=== PATIENT | female | born 1990 | race Caucasian/White ===

== ENCOUNTER 2016-10-24 13:19 | Emergency (ER) | payer MEDICAID ==
[~2016-10-24 13:19] MED LIST: CALNTAB; PENI500T PO; PERI0.126 SWISH-SPIT
--- NOTE | 2016-10-24 15:00 | PD ---
HPI Chief Complaint Decreased movement Date Seen: Oct 24, 2016 Travel History International Travel<30 Days: No Contact w/Intl Traveler<30Days: No Known Affected Area: No History of Present Illness HPI at 36w 6d with c/o decreased movement for one day. Reports FM upon arrival to [facility]. Denies contractions/LOF/VB. Has appt for OB f/u tomorrow. Para: 1 : 2 Last Menstrual Period: Oct 24, 2016 History Past Medical History Medical History: Denies Significant Hx Obstetric History Obstetric History FT x 1 Past Surgical History Narrative Surgical Appendectomy 2006 Family History Family History: Negative Social History Alcohol Use: No Tobacco Use: No Substance Abuse: Yes (History of IVDA in the past- none this ) Allergies-Medications (Allergen,Severity, Reaction): Coded Allergies: No Known Allergies (Verified , 09/07/16) Home Meds Active Scripts Chlorhexidine Gluconate (Mouth) Liq (Peridex Liq)0.12% Soln15 Ml SWISH-SPIT BID 14 Days Ref 0 Prov:Anastasia Ramon 07/31/16 Penicillin V Potassium 500 Mg [id number] Mg PO Q6H 10 Days Ref 0 Prov:Anastasia Ramon 07/31/16 Reported Medications Vitamin (Calna)1 Tab Tab 09/07/16 Physical Exam Narrative GENERAL: Well-nourished, well-developed patient. SKIN: Warm and dry. HEAD: Normocephalic and atraumatic. EYES: No scleral icterus. No injection or drainage. ENT: No nasal drainage noted. Mucous membranes pink. Airway patent. NECK: Supple, trachea midline. No JVD. CARDIOVASCULAR: Regular rate and rhythm without murmurs, gallops, or rubs. RESPIRATORY: Breath sounds equal bilaterally. No accessory muscle use. BREASTS: Bilateral exam showed no masses , no retractions, no nipple discharge. ABDOMEN/GI: Abdomen soft, non-tender, bowel sounds present, no rebound, no guarding Gravid to [-] weeks size Fundal Height: [-] GENITOURINARY: deferred External Genitalia: intact and normal in appearance BUS glands: [-] Cervix: [-] Dilatation: [-] Effacement: [-] Station: [-] Presentation: [-] Membranes: [intact or ruptured] Uterine Contractions: [rare] FHT's: Category: [1] Baseline: [130s] Reactive: [yes] Variability: [moderate] Decels: [none] EXTREMITIES: No cyanosis or edema. BACK: Nontender without obvious deformity. No CVA tenderness. NEUROLOGICAL: Awake and alert. Motor and sensory grossly within normal limits. Five out of 5 muscle strength in all muscle groups. Normal speech. Data Data Vital Signs Reviewed: Yes MDM Interpretation(s) at 36w 6d, decreased FM, reporting FM Plan movement instructions given to patient. Labor precautions given. All questions answered. Keep f/u appt for tomorrow. Diagnosis Diagnosis: Primary Impression: 36 weeks gestation of Additional Impression: Decreased movement affecting management of in third trimester Disposition: 01 DISCHARGE HOME Condition: Good Alaina Blanco MD Oct 24, 2016 15:00
== END 2016-10-24 15:28 | disposition home or self-care (01) ==
LOC: HOBED 13:19
DX: O36.8130 Decreased fetal movements, third trimester, not applicable or unspecified (principal); Z3A.36 36 weeks gestation of pregnancy
CPT/HCPCS: 99284

== ENCOUNTER 2016-11-05 18:47 | Emergency (ER) | payer MEDICAID ==
--- NOTE | 2016-11-05 20:15 | PD ---
HPI Chief Complaint Loss of fluid Date Seen: Nov 05, 2016 Travel History International Travel<30 Days: No Contact w/Intl Traveler<30Days: No History of Present Illness HPI Patient is a 25 year old at 38-4/7 weeks gestation who presents today for possible ROM. She states that she lost a small amount of clear fluid today. She denies any vaginal bleeding or contractions. Positive movement. History Past Medical History Medical History: Denies Significant Hx Obstetric History Obstetric History s/p with minor placental abruption Past Surgical History Narrative Surgical Appendectomy 2006 Family History Family History: Negative Social History Alcohol Use: No Tobacco Use: No Substance Abuse: Yes (history of marijuana, benzos, dilaudid, methamphetamine, last used 2.5 years ago) Allergies-Medications (Allergen,Severity, Reaction): Coded Allergies: No Known Allergies (Verified , 09/07/16) Home Meds Active Scripts Chlorhexidine Gluconate (Mouth) Liq (Peridex Liq)0.12% Soln15 Ml SWISH-SPIT BID 14 Days Ref 0 Prov:Anastasia Ramon 07/31/16 Penicillin V Potassium 500 Mg [id number] Mg PO Q6H 10 Days Ref 0 Prov:Anastasia Ramon 07/31/16 Reported Medications Vitamin (Calna)1 Tab Tab 09/07/16 Review of Systems Except as stated in HPI: all other systems reviewed are Neg General / Constitutional: No: Fever, Chills Eyes: No: Visual changes HENT: No: Headaches Cardiovascular: No: Chest Pain or Discomfort, Palpitations Respiratory: No: Short of Breath Gastrointestinal: No: Nausea, Vomiting Genitourinary: Discharge, No: Pelvic Pain, Vaginal Bleeding Musculoskeletal: No: Edema Psychiatric: No: Substance Abuse Physical Exam Narrative GENERAL: Well-nourished, well-developed patient. SKIN: Warm and dry. HEAD: Normocephalic and atraumatic. EYES: No scleral icterus. No injection or drainage. ENT: No nasal drainage noted. Mucous membranes pink. Airway patent. NECK: Supple, trachea midline. No JVD. CARDIOVASCULAR: Regular rate and rhythm without murmurs, gallops, or rubs. RESPIRATORY: Breath sounds equal bilaterally. No accessory muscle use. ABDOMEN/GI: Abdomen soft, non-tender, bowel sounds present, no rebound, no guarding Gravid to 38 weeks size GENITOURINARY: External Genitalia: intact and normal in appearance BUS glands: normal Cervix: posterior Dilatation: 1cm Effacement: 80% Station: -3 Presentation: vertex Membranes: intact Uterine Contractions: none FHT's: Category: I Baseline: 130 Reactive: + Variability: moderate Decels: none EXTREMITIES: No cyanosis or edema. BACK: Nontender without obvious deformity. No CVA tenderness. NEUROLOGICAL: Awake and alert. Motor and sensory grossly within normal limits. Normal speech. Data Data Vital Signs Reviewed: Yes Orders ^ Discharge Activity (11/05/16 19:59) MDM Medical Record Reviewed: Yes Narrative Course / MDM 25 year old at 38-4/7 weeks gestation. 1. IUP- Category I tracing, reassuring. Continue routine obstetric care. 2. Possible ROM- Amnisure negative, not in labor. 3. Dispo- Discharge home. Return to ED for signs/symptoms of labor. vignesh Storey Diagnosis Diagnosis: Primary Impression: 38 weeks gestation of Additional Impression: False labor Disposition: 01 DISCHARGE HOME Condition: Stable Patient Instructions: General Instructions, Premature Rupture of Membranes (ED) , Having Your Baby: The Labor Process (GEN) Departure Forms: Tests/Procedures Rona Sawyer MD R2 Nov 05, 2016 20:15
== END 2016-11-06 00:11 | disposition home or self-care (01) ==
LOC: HOBED 18:47
DX: Z03.71 Encounter for suspected problem with amniotic cavity and membrane ruled out (principal); O47.1 False labor at or after 37 completed weeks of gestation; Z3A.38 38 weeks gestation of pregnancy
CPT/HCPCS: 84112; 99284

== ENCOUNTER 2016-11-06 00:37 | Emergency (ER) | payer MEDICAID ==
--- NOTE | 2016-11-06 01:15 | PD ---
HPI Chief Complaint Vaginal bleeding after being examined this evening by her OB doctor Dr. Storey Date Seen: Nov 06, 2016 Travel History International Travel<30 Days: No Contact w/Intl Traveler<30Days: No Known Affected Area: No History of Present Illness HPI Patient is 25-year-old white female at 38 weeks who presented earlier this evening with possible leakage of fluid was seen by Dr. Storey, amnio sure was negative patient was checked cervical exam was a centimeter and she was sent home. The patient now returns describing red vaginal bleeding that began after the exam done none prior, heart rate tracing is reactive no regular contractions noted Para: 1 : 2 History Obstetric History Obstetric History One vaginal delivery Social History Alcohol Use: No Tobacco Use: No Substance Abuse: No Allergies-Medications (Allergen,Severity, Reaction): Coded Allergies: No Known Allergies (Verified , 09/07/16) Home Meds Active Scripts Chlorhexidine Gluconate (Mouth) Liq (Peridex Liq)0.12% Soln15 Ml SWISH-SPIT BID 14 Days Ref 0 Prov:Anastasia Ramon 07/31/16 Penicillin V Potassium 500 Mg [id number] Mg PO Q6H 10 Days Ref 0 Prov:Anastasia Ramon 07/31/16 Reported Medications Vitamin (Calna)1 Tab Tab 09/07/16 Review of Systems General / Constitutional: No: Fever, Weight Gain, Chills, Other Eyes: No: Diploplia, Blurred Vision, Visual changes, Pain, Photophobia HENT: No: Headaches, Vertigo, Lightheadedness Cardiovascular: No: Irregular Rhythm, Chest Pain or Discomfort, Palpitations, Tachycardia, Syncope, Varicosities, Edema, Cyanosis Respiratory: No: Cough, Short of Breath, Other Gastrointestinal: No: Nausea, Vomiting, Diarrhea Genitourinary: Vaginal Bleeding, No: Decreased Urinary Output, Oliguria Musculoskeletal: No: Limited ROM, Weakness, Cramping, Edema, Pain Skin: No Rash, No Itching, No Dryness, No Lumps, No Change in Pigmentation, No Change in Nails, No Alopecia, No Lesions Neurologic: No: Weakness, Dizziness, Syncope, Focal Abnormalities, Coordination Problem, Headache, Slurred Speech, Seizures Psychiatric: No: Depression, Suicidal Ideations, Homicidal Ideation Endocrine: No: Heat Intolerance, Cold Intolerance, Polydipsia, Polyuria, Other Physical Exam Narrative GENERAL: Well-nourished, well-developed patient. SKIN: Warm and dry. HEAD: Normocephalic and atraumatic. EYES: No scleral icterus. No injection or drainage. ENT: No nasal drainage noted. Mucous membranes pink. Airway patent. NECK: Supple, trachea midline. No JVD. CARDIOVASCULAR: Regular rate and rhythm without murmurs, gallops, or rubs. RESPIRATORY: Breath sounds equal bilaterally. No accessory muscle use. BREASTS: Bilateral exam showed no masses , no retractions, no nipple discharge. ABDOMEN/GI: Abdomen soft, non-tender, bowel sounds present, no rebound, no guarding Gravid to [38-] weeks size Fundal Height: [38-] GENITOURINARY: External Genitalia: intact and normal in appearance, speculum exam done and could visualize small amount of dark red blood in the fornix there was no sign of active bleeding BUS glands: [-] Cervix: [1-] Dilatation: 1 Effacement: [50-] Station: [-3] Presentation: [-vtx] Membranes: [intact ] Uterine Contractions: [none-] FHT's: Category: [1-] Baseline: [133-] Reactive: [-yes] Variability: [mod-] Decels: [none-] EXTREMITIES: No cyanosis or edema. BACK: Nontender without obvious deformity. No CVA tenderness. NEUROLOGICAL: Awake and alert. Motor and sensory grossly within normal limits. Five out of 5 muscle strength in all muscle groups. Normal speech. MDM Interpretation(s) This patient is a 25 white female at 38 weeks is a patient of Dr. Storey's was here earlier in the day of to rule out ruptured membranes Dr. Storey saw the patient checked her cervix she had negative amnio sure and she was discharged home. She returns now complaining of red bleeding noted only since that exam none prior. Here on OB ED she was checked speculum exam was done no active bleeding seen but she did have a small amount a red blood dark blood in the posterior fornix. Cervix is still 1 cm 50% -3. heart rate tracing is reactive she is not tamia Impressions-- vaginal bleeding after cervical exam which I explained to the patient was of fairly normal finding and a common occurrence Plan Plan to observe the patient over the next 30 minutes to an hour readability bathroom to see how much if any she's having bleeding if that's minimal that she be discharged home to bedrest Diagnosis Diagnosis: Primary Impression: Spotting affecting in third trimester Disposition: 01 DISCHARGE HOME Condition: Stable Kiran Burciaga II, MD Nov 06, 2016 01:15
== END 2016-11-06 02:18 | disposition home or self-care (01) ==
LOC: HOBED 00:37
DX: O47.1 False labor at or after 37 completed weeks of gestation (principal); Z3A.38 38 weeks gestation of pregnancy
CPT/HCPCS: 99284

== ENCOUNTER 2016-11-08 06:08 | Inpatient (IN) | payer MEDICAID ==
[2016-11-08] VITALS (55 sets, daily range): BP systolic 97–160; BP diastolic 47–101; PULSE 53–102; RESP 16–18; TEMP 97.7–98.2
[2016-11-08] MEDS ORDERED: LACTATED RINGER'S 1000 ML INJ 1,000 ML IV PRN (07:22)
--- NOTE | 2016-11-08 07:22 | PD.LABORPN ---
Subjective Subjective 25 yo swf at 39 0/7 with favorable bishops score here for AROM and induction. No leaking, bleeding, N, V Blurred vision or RUQT. GFM. Prodromal contractions and spotting this week. 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 no substance through the . Stable environment. PNC with HOGA and reassuring Objective Objective Pelvic Exam: 2/80/firm/anterior -2 arom minimal fluid] category one Assessment/Plan Assessment and Plan multip desires induction with favorable bishops score proven to 7 pounds pelvis clinically adequate anticipate epidural and pitocin if needed Laura Storey MD Nov 08, 2016 07:22
[2016-11-08] MEDS ORDERED: OXYTOCIN 30 UNITS-500ML PREMIX 500 ML IV ONE (07:30)
[2016-11-08] MEDS ORDERED: LIDOCAINE HCL 1% 50 ML VIAL INFIL PRN (07:30)
[2016-11-08] MEDS ORDERED: LIDOCAINE HCL 1% 50 ML VIAL I-DERMAL PRN (07:30)
[2016-11-08] MEDS ORDERED: SODIUM CHLORID 0.9% 500 ML INJ 500 ML IV PRN (07:30)
[2016-11-08] MEDS ORDERED: CITRIC ACID-SODIUM CITRATE LIQ 30 ML UDC PO SCH (07:30)
[2016-11-08] MEDS ORDERED: MINERAL OIL 10 ML VIAL TOPICAL PRN (07:30)
[2016-11-08] MEDS ORDERED: OXYTOCIN 30 UNITS-500ML PREMIX 500 ML IV SCH (07:30)
[2016-11-08] MEDS ORDERED: SODIUM CHLOR 0.9% 1000 ML INJ 1,000 ML IV PRN (07:42)
[2016-11-08 07:49] LABS: AUTOMATED NEUTROPHIL # 5.9 TH/MM3 (1.8-7.7); BASOPHIL # 0.1 TH/MM3 (0-0.2); BASOPHIL % 0.6 % (0.0-2.0); EOSINOPHIL # 0.1 TH/MM3 (0-0.4); EOSINOPHIL % 1.4 % (0.0-4.0); HEMATOCRIT 28.5 % (35.0-46.0); HEMO FLAGS DIFF FINAL; LYMPH % 24.3 % (9.0-44.0); LYMPHOCYTE # 2.2 TH/MM3 (1.0-4.8); MEAN CELL VOLUME 83.4 FL (80.0-100.0); MEAN CORPUSCULAR HEMOGLOBIN 29.1 PG (27.0-34.0); MONO % 8.3 % (0.0-8.0); NEUT % 65.4 % (16.0-70.0); PLATELET COUNT 206 TH/MM3 (150-450); RED BLOOD COUNT 3.42 MIL/MM3 (4.00-5.30); RED CELL DISTRIBUTION WIDTH 12.9 % (11.6-17.2); WHITE BLOOD COUNT 9.1 TH/MM3 (4.0-11.0)
[2016-11-08 08:12] LABS: BLOOD, URINE NEG (NEG); GLUCOSE,URINE NEG (NEG); KETONE, URINE NEG (NEG); NITRITE,URINE NEG (NEG); PH, URINE 6.5 (5.0-8.5); SQUAMOUS EPITHELIAL CELL URINE 2 /hpf (0-5); URINE COLOR YELLOW (YELLW/STRAW)
[2016-11-08 08:13] LABS: COMMENT (UR) CULT NOT INDICATED; CULTURE IF INDICATED CULT NOT INDICATED
[2016-11-08] MEDS ORDERED: fentaNYL 2MCG-BUPIV 0.125% INJ 100 ML ONE (08:56)
[2016-11-08] MEDS: LACTATED RINGER'S 1000 ML INJ 1,000 ML IV SCH ×2 (09:11→15:00)
[2016-11-08] MEDS ORDERED: ePHEDrine/NS 25 MG/5 ML SYR ONE (09:26)
[2016-11-08] MEDS ORDERED: fentaNYL 2MCG-BUPIV 0.125% 100 ML EPIDURAL SCH (10:30)
[2016-11-08] MEDS ORDERED: NO SYSTEM NARCOTICS XX PRN (10:30)
[2016-11-08] MEDS ORDERED: DO NOT ADMINISTER ANTICOAGULANTS XX PRN (10:30)
[2016-11-08] MEDS ORDERED: ePHEDrine/NS 25 MG/5 ML SYR IV PRN (10:30)
[2016-11-08] MEDS ORDERED: OXYTOCIN 10 UNIT/ML AMP ONE (14:34)
[2016-11-08] MEDS ORDERED: MEASLES, MUMPS, RUBELLA VACCINE 0.5 ML VIAL SQ ONE (16:00)
[2016-11-08] MEDS ORDERED: DIPHTH/TETANUS/ACEL PERTUSSIS (BOOSTER) 0.5 ML VIAL/PFS IM ONE (16:00)
--- NOTE | 2016-11-08 17:50 | PD.OB.DELI ---
Anesthesia: Epidural Episiotomy: None Vaginal Delivery: Normal Presentation: Occiput anterior Nuchal Cord: None Delayed cord clamping (45 sec): Yes Infant: Female One Minute : 9 Five Minute : 9 Weight: 7 Infant Care: Suctioned, Blow-by O2 delivered Placenta: Spontaneous delivery Laura Storey MD Nov 08, 2016 17:50
[2016-11-08] MEDS ORDERED: ZOLPIDEM TARTRATE 5 MG TAB PO PRN (18:00)
[2016-11-08] MEDS ORDERED: BENZOCAINE 20% TOPICAL SPRAY 60 ML CAN TOPICAL PRN (18:00)
[2016-11-08] MEDS ORDERED: DOCUSATE SODIUM 50 MG/SENNA 8.6 MG TAB PO PRN (18:00)
[2016-11-08] MEDS ORDERED: ONDANSETRON ODT 4 MG TAB PO PRN (18:00)
[2016-11-08] MEDS ORDERED: WITCH HAZEL 50%/GLYCERIN 12.5% 40 PAD JAR TOPICAL PRN (18:00)
[2016-11-08] MEDS ORDERED: ACETAMINOPHEN 325 MG TAB PO PRN (18:00)
[2016-11-08] MEDS ORDERED: SODIUM CHLORIDE 0.9% FLUSH 5 ML FLUSH IV PRN (18:00)
[2016-11-08] MEDS ORDERED: ALUMINUM/MAGNESIUM/SIMETH 30 ML CUP PO PRN (18:00)
[2016-11-08] MEDS ORDERED: SODIUM CHLORIDE 0.9% FLUSH 5 ML FLUSH IV SCH (21:00)
[2016-11-08] MEDS: IBUPROFEN 600 MG TAB PO PRN (21:35)
[2016-11-09] MEDS: IBUPROFEN 600 MG TAB PO PRN ×4 (04:35→23:43)
--- NOTE | 2016-11-09 08:27 | HHI.OB ---
Subjective Post Day: 1 Remarks Doing well, pain is well controlled Baby is doing well, Objective Vitals/I&O Vital Signs Date Time Temp Pulse Resp B/P Pulse Ox O2 Delivery O2 Flow Rate FiO2 11/08/16 20:00 98.0 11/08/16 20:00 80 18 11/08/16 19:50 123/74 11/08/16 19:30 18 11/08/16 19:15 91 148/96 11/08/16 19:01 75 123/65 11/08/16 19:00 18 11/08/16 18:45 79 141/79 11/08/16 18:31 82 139/69 11/08/16 18:30 98.2 11/08/16 18:00 102 152/91 11/08/16 17:51 97 145/101 11/08/16 17:45 18 11/08/16 17:31 84 160/91 11/08/16 17:01 88 131/83 11/08/16 16:31 76 138/58 11/08/16 16:15 98.1 11/08/16 16:00 86 126/78 11/08/16 15:32 67 133/67 11/08/16 15:00 63 131/72 11/08/16 14:46 80 130/71 11/08/16 14:30 74 128/75 11/08/16 14:16 73 125/78 11/08/16 14:01 66 132/67 11/08/16 13:46 76 124/74 11/08/16 13:31 135/72 11/08/16 13:31 77 11/08/16 13:15 66 128/77 11/08/16 13:00 118/98 11/08/16 12:45 78 104/70 11/08/16 12:30 69 115/67 11/08/16 12:15 62 128/79 11/08/16 12:11 97.7 11/08/16 12:00 81 127/75 11/08/16 11:45 73 120/79 11/08/16 11:30 16 11/08/16 11:30 61 126/70 11/08/16 11:15 123/74 11/08/16 11:15 67 11/08/16 11:00 82 125/77 11/08/16 10:45 64 125/75 11/08/16 10:30 70 134/77 11/08/16 10:17 65 122/61 11/08/16 10:16 53 97/47 11/08/16 10:15 70 11/08/16 10:10 79 122/74 11/08/16 10:06 84 122/83 11/08/16 10:05 78 11/08/16 10:00 79 134/78 11/08/16 09:55 141/86 11/08/16 09:55 82 11/08/16 09:51 66 138/67 11/08/16 09:50 82 11/08/16 09:45 79 138/79 11/08/16 09:45 79 11/08/16 09:41 82 125/88 11/08/16 09:40 90 11/08/16 09:37 62 137/67 11/08/16 09:35 75 11/08/16 09:30 68 11/08/16 08:40 97.9 60 128/79 Objective Remarks GENERAL: Well-nourished, well-developed patient. CARDIOVASCULAR: Regular rate and rhythm without murmurs, gallops, or rubs. RESPIRATORY: Breath sounds equal bilaterally. No accessory muscle use. ABDOMEN/GI: Abdomen soft, non-tender. Fundus: Firm, non-tender at umbilicus. GENITOURINARY: Light to moderate bleeding. EXTREMITIES: No cyanosis or edema, non-tender, without signs of DVT. Medications and IVs Current Medications Medications (Trade) Dose Ordered Sig/Kristin Route Start Time Stop Time Status Last Admin Lactated Ringer's 1,000 ml @ 125 mls/hr Q8H IV 11/08/16 07:22 11/08/16 15:00 Lactated Ringer's 1,000 ml @ 3,000 mls/hr Q20M PRN IV 11/08/16 07:22 11/08/16 09:11 (NS 1000 ml Inj) 1,000 ml @ 100 mls/hr Q10H PRN IV 11/08/16 07:42 (fentaNYL INJ) 50 mcg Q1H PRN IV PUSH 11/08/16 07:30 (fentaNYL INJ) 100 mcg Q1H PRN IV PUSH 11/08/16 07:30 Mineral Oil 10 ml 10 ml UNSCH PRN TOPICAL 11/08/16 07:30 (Pitocin 30 Units-NS 500 ml Premix) 500 ml @ 0 mls/hr TITRATE IV 11/08/16 07:30 11/08/16 08:51 Miscellaneous Information No systemic narcotics to be given except... UNSCH PRN XX 11/08/16 10:30 11/09/16 10:29 Miscellaneous Information DO NOT ADMINISTER ANY ANTICOAGUL... UNSCH PRN XX 11/08/16 10:30 11/09/16 10:29 (fentaNYL 2MCG-BUPIV 0.125% INJ) 100 ml @ 0 mls/hr TITRATE EPIDURAL 11/08/16 10:30 (ePHEDrine/NS 25 MG/5 ML SYR) 10 mg UNSCH PRN IV 11/08/16 10:30 11/09/16 10:29 (NS Flush) 2 ml BID IV 11/08/16 21:00 (NS Flush) 2 ml UNSCH PRN IV 11/08/16 18:00 (Tylenol) 650 mg Q4H PRN PO 11/08/16 18:00 (Motrin) 600 mg Q6H PRN PO 11/08/16 18:00 11/09/16 04:35 (Americaine 20% Top Spr) 1 spray Q4H PRN TOPICAL 11/08/16 18:00 (Tucks Pads) 1 applic QID PRN TOPICAL 11/08/16 18:00 (Carmen-Colace) 2 tab Q12H PRN PO 11/08/16 18:00 (Ambien) 5 mg HS PRN PO 11/08/16 18:00 (Mag-Al Plus Susp Liq) 15 ml Q8H PRN PO 11/08/16 18:00 (Zofran Odt) 4 mg Q6H PRN PO 11/08/16 18:00 Assessment/Plan Assessment and Plan PPD #1` Routine care Consider d/c home soon Discharge Planning Home with baby Wants to go home today if possible Tracy Gao MD Nov 09, 2016 08:27
[2016-11-09] MEDS ORDERED: IBUP-232 PO (08:45)
--- NOTE | 2016-11-09 08:45 | HHI.DCPOC ---
Discharge Care Plan Report Symptoms to Your Doctor -Temperate above 100.5 degrees -Redness, of incision or excessive or foul smelling drainage -Unusual pain or calf pain -Increased vaginal bleeding -Painful or difficulty urinating -Feelings of extreme sadness or anxiety after 2 weeks Goals to Promote Your Health * To prevent worsening of your condition and complications * To maintain your health at the optimal level Directions to Meet Your Goals Take your medications as prescribed Follow your dietary instruction Follow activity as directed Ensure plenty of rest for recovery Drink fluids for hydration Keep your appointments as scheduled Take your immunizations and boosters as scheduled If your symptoms worsen call your PCP, if no PCP go to Urgent Care Center or Emergency Room Smoking is Dangerous to Your Health. Avoid second hand smoke Call the 24-hour crisis hotline for domestic abuse at Laura Storey MD Nov 09, 2016 08:45
[2016-11-10] MEDS: IBUPROFEN 600 MG TAB PO PRN (08:34)
== END 2016-11-10 11:57 | disposition home or self-care (01) | DRG 775 ==
LOC: H2EA 06:08 → H1EA 19:47 → HNUR 11-10 03:18 → H1EA 11-10 03:43
PROVIDERS: ADMIT Obstetrics & Gynecology; ATTEND Obstetrics & Gynecology
PROC: 10E0XZZ Delivery of Products of Conception, External Approach (ICD-10-PCS; principal; 2016-11-08)
DX: O80 Encounter for full-term uncomplicated delivery (principal); Z37.0 Single live birth; Z3A.39 39 weeks gestation of pregnancy
CPT/HCPCS: 59025; 81001; 85025; 86900; 86901; 90715; J2590; J7120